=== PATIENT | female | born 1980 | race Caucasian/White ===

== ENCOUNTER → 2016-09-27 | Outpatient (CLI) | payer OTHER, MEDICAID ==
[~2016-09-27] MED LIST: ACET50TA PO; PRENATAL VITAMIN PO
[2016-09-27 18:45] LABS: BASO % 0.3 % (0.0-1.0); EOS # 0.2 K/mm3 (0.0-0.50); EOS % 1.8 % (0.0-3.0); LARGE UNSTAINED CELL # 0.2 K/mm3 (0.0-0.4); LYMPH # 2.4 K/mm3 (1.5-4.5); LYMPH % 26.9 % (24.0-44.0); MEAN CORPUSCULAR HEMOGLOBIN 30.7 pg (27.0-33.0); MEAN CORPUSCULAR HGB CONC 33.6 g/dl (32.0-36.5); MEAN CORPUSCULAR VOLUME 91.3 fl (80.0-96.0); MONO # 0.6 K/mm3 (0.0-0.8); MONO % 7.1 % (0.0-5.0); NEUTROPHILS # 5.5 K/mm3 (1.8-7.7); PLATELET COUNT, AUTOMATED 290 k/mm3 (150-450); RED CELL DISTRIBUTION WIDTH 12.3 % (11.5-14.5); WHITE BLOOD COUNT 8.9 K/mm3 (4.0-10.0)
[2016-09-30 10:26] LABS: HBsAg Prenatal NEGATIVE (NEGATIVE)
[2016-09-30 14:26] LABS: CONTROL LINE INT CTR LINE PRESENT; HIV SCRN NEGATIVE (NEGATIVE); HIV SCRN1 NEGATIVE (NEGATIVE)
== END ==
LOC: M SMT 10:57
PROVIDERS: ATTEND Advanced Practice Midwife
DX: Z34.81 Encounter for supervision of other normal pregnancy, first trimester (principal)

== ENCOUNTER 2016-10-24 09:36 | Emergency (ER) | payer OTHER, MEDICAID ==
[~2016-10-24] VITALS: Ht 167.6 cm; Wt 91.6 kg
[2016-10-24] MEDS ORDERED: METOCLOPRAMIDE INJ 10MG/2ML VIAL (J2765) As Ordered ONE (10:52)
[2016-10-24 12:22] VITALS: BP 147/57
[2016-10-24 14:02] LABS: ALT/SGPT 44 U/L (12-78); ANION GAP 9 MEQ/L (8-16); AST/SGOT 24 U/L (15-37); BLOOD UREA NITROGEN 11 MG/DL (7-18); CALCIUM LEVEL 8.8 MG/DL (8.5-10.1); CARBON DIOXIDE LEVEL 23 MEQ/L (21-32); CHLORIDE LEVEL 107 MEQ/L (98-107); CREATININE FOR GFR 0.57 MG/DL (0.55-1.02); GLOMERULAR FILTRATION RATE > 60.0 (>60); GLUCOSE, FASTING 79 MG/DL (70-105); MEAN CORPUSCULAR HEMOGLOBIN 31.7 pg (27.0-33.0); MEAN CORPUSCULAR HGB CONC 35.3 g/dl (32.0-36.5); MEAN CORPUSCULAR VOLUME 89.8 fl (80.0-96.0); POTASSIUM SERUM 3.7 MEQ/L (3.5-5.1); RED CELL DISTRIBUTION WIDTH 12.5 % (11.5-14.5); SODIUM LEVEL 139 MEQ/L (136-145); WHITE BLOOD COUNT 17.7 K/mm3 (4.0-10.0)
[2016-10-24 14:03] LABS: ALBUMIN 3.7 GM/DL (3.2-5.2); ALBUMIN/GLOBULIN RATIO 1.03 (1.00-1.93); ALKALINE PHOSPHATASE 103 U/L (45-117); AMYLASE 41 U/L (25-115); BASO % 0.2 % (0.0-1.0); BILIRUBIN,TOTAL 0.4 MG/DL (0.2-1.0); EOS # 0.2 K/mm3 (0.0-0.50); EOS % 0.9 % (0.0-3.0); LARGE UNSTAINED CELL # 0.1 K/mm3 (0.0-0.4); LARGE UNSTAINED CELL % 0.7 % (0.0-4.0); LYMPH # 1.1 K/mm3 (1.5-4.5); MONO # 0.7 K/mm3 (0.0-0.8); NEUTROPHILS # 15.6 K/mm3 (1.8-7.7); NEUTROPHILS % 88.3 % (36.0-66.0); PLATELET COUNT, AUTOMATED 246 k/mm3 (150-450); TOTAL PROTEIN 7.3 GM/DL (6.4-8.2)
== END 2016-10-24 12:37 | disposition home or self-care (01) ==
LOC: M ED 11:51
DX: R11.2 Nausea with vomiting, unspecified (principal); Z88.8 Allergy status to other drugs, medicaments and biological substances
CPT/HCPCS: 36415; 80053; 81001; 82150; 83690; 85025; 87086; 99282; J2765

== ENCOUNTER → 2016-10-30 | Outpatient (CLI) | payer OTHER, MEDICAID | LOC: M WUC 17:09 | PROVIDERS: ATTEND Advanced Practice Midwife | DX: Z34.81 Encounter for supervision of other normal pregnancy, first trimester (principal) ==

== ENCOUNTER → 2016-11-12 | Outpatient (CLI) | payer OTHER, MEDICAID | LOC: M SMT 10:41 | PROVIDERS: ATTEND Advanced Practice Midwife | DX: O09.521 Supervision of elderly multigravida, first trimester (principal); Z3A.00 Weeks of gestation of pregnancy not specified; Z13.79 Encounter for other screening for genetic and chromosomal anomalies ==

== ENCOUNTER → 2016-12-17 | Outpatient (CLI) | payer OTHER, MEDICAID ==
--- NOTE | 2016-12-18 06:36 | REP ---
Clinical: Anatomical evaluation. Comparison: None . Findings: Examination demonstrates a single live intrauterine in cephalic presentation. motion is identified by technologist. Placenta is noted anterior and grade 0 measuring approximately 1.2 cm from the closed internal os. Amniotic fluid volume is normal. Cervix measures 4.2 cm in length and appears closed. No evidence for nuchal cord. Gestational age by current measurements 18 weeks 6 days with STEPHANIE 05/14/2017 . FHR equals 153 beats per minute. BPD 4.4 cm 19 weeks 3 days HC 16.2 cm 19 weeks 0 days AC 13.3 cm 18 weeks 5 days FL 2.9 cm 19 weeks 0 days HL 3.0 cm 19 weeks 5 days HC/AC ratio 1.22 Estimated weight 263 grams ( 47th percentile). Anatomical assessment demonstrates normal structures including cranium, choroid plexus, cavum, cerebellum/posterior fossa, nose/lips, lungs, diaphragm, stomach, cord insertion/three-vessel cord, kidneys/bladder, spine, and upper extremities. Limited evaluation of the facial profile, heart/ventricular outflow tracts, and lower extremities noted. Impression: 1. Single live intrauterine in cephalic presentation demonstrating appropriate interval growth. 2. Anatomical limitations as described above may warrant reevaluation and follow-up. No gross abnormalities are identified. 3. Anterior marginal placenta previa cannot be excluded. Signed by Brennan Hernandez MD 12/18/2016 06:28 A
== END ==
LOC: M SMT 12:56
PROVIDERS: ATTEND Advanced Practice Midwife
DX: Z36 Encounter for antenatal screening of mother (principal); Z3A.18 18 weeks gestation of pregnancy

== ENCOUNTER → 2017-01-21 | Outpatient (CLI) | payer OTHER, MEDICAID ==
--- NOTE | 2017-01-21 23:50 | REP ---
Clinical: Anatomical evaluation. Comparison: 12/17/2016 . Findings: Examination demonstrates a single live intrauterine in transverse (head to maternal right) presentation. motion is identified by technologist. Placenta is noted anteriorly and grade zero without evidence for placenta previa or abruption. Amniotic fluid volume is normal. Cervix measures 3.9 cm in length and appears closed. No evidence for nuchal cord. Gestational age by LMP 23 weeks 6 days with STEPHANIE 05/14/2017 . Gestational age by current measurements 23 weeks 6 days with STEPHANIE 05/14/2017 . FHR equals 136 beats per minute. Estimated weight 698 grams ( 62nd percentile). Anatomical assessment demonstrates normal structures including cranium, choroid plexus, cavum, facial features, lungs, four-chamber heart/ventricular outflow tracts, diaphragm, stomach, cord insertion/three-vessel cord, kidneys/bladder, spine, and extremities. Impression: Single live intrauterine in transverse lie demonstrating appropriate interval growth. In conjunction with prior examination anatomical assessment is complete and normal. No gross abnormalities are identified. Signed by Brennan Hernandez MD 01/21/2017 11:41 P
== END ==
LOC: M SMT 13:05
PROVIDERS: ATTEND Advanced Practice Midwife
DX: Z36 Encounter for antenatal screening of mother (principal); Z3A.23 23 weeks gestation of pregnancy; O09.522 Supervision of elderly multigravida, second trimester

== ENCOUNTER → 2017-02-03 | Outpatient (CLI) | payer OTHER, MEDICAID ==
[2017-02-03 14:34] LABS: BASO % 0.2 % (0.0-1.0); EOS # 0.2 K/mm3 (0.0-0.50); EOS % 1.2 % (0.0-3.0); LARGE UNSTAINED CELL # 0.1 K/mm3 (0.0-0.4); LARGE UNSTAINED CELL % 0.7 % (0.0-4.0); LYMPH # 1.8 K/mm3 (1.5-4.5); LYMPH % 13.2 % (24.0-44.0); MEAN CORPUSCULAR HEMOGLOBIN 31.7 pg (27.0-33.0); MEAN CORPUSCULAR HGB CONC 33.9 g/dl (32.0-36.5); MEAN CORPUSCULAR VOLUME 93.5 fl (80.0-96.0); MONO # 0.5 K/mm3 (0.0-0.8); MONO % 4.1 % (0.0-5.0); NEUTROPHILS # 10.4 K/mm3 (1.8-7.7); NEUTROPHILS % 80.5 % (36.0-66.0); PLATELET COUNT, AUTOMATED 263 k/mm3 (150-450); RED CELL DISTRIBUTION WIDTH 13.1 % (11.5-14.5)
== END ==
LOC: M SMT 08:53
PROVIDERS: ATTEND Advanced Practice Midwife
DX: O09.523 Supervision of elderly multigravida, third trimester (principal); Z3A.00 Weeks of gestation of pregnancy not specified
CPT/HCPCS: 36415; 82950; 85025; 86850; 86900; 86901; J2790

== ENCOUNTER → 2017-03-27 | Outpatient (REF) | payer OTHER, MEDICAID | LOC: M LAB REF 17:25 | PROVIDERS: ATTEND Advanced Practice Midwife | DX: O09.523 Supervision of elderly multigravida, third trimester (principal); Z3A.31 31 weeks gestation of pregnancy ==

== ENCOUNTER → 2017-04-15 | Outpatient (REF) | payer OTHER, MEDICAID | LOC: M LAB REF 17:03 | PROVIDERS: ATTEND Specialist | DX: Z34.83 Encounter for supervision of other normal pregnancy, third trimester (principal) ==

== ENCOUNTER 2017-10-24 08:24 | Day surgery (SDC) | payer OTHER ==
[2017-10-24 08:55] LABS: HEMATOCRIT 41.9 % (36.0-47.0); HEMOGLOBIN 14.3 g/dl (12.0-15.5); MEAN CORPUSCULAR HEMOGLOBIN 30.6 pg (27.0-33.0); MEAN CORPUSCULAR HGB CONC 34.1 g/dl (32.0-36.5); MEAN CORPUSCULAR VOLUME 89.5 fl (80.0-96.0); PLATELET COUNT, AUTOMATED 273 10^3/uL (150-450); RED BLOOD COUNT 4.68 10^6/uL (4.00-5.40); RED CELL DISTRIBUTION WIDTH 13.4 % (11.5-14.5); WHITE BLOOD COUNT 11.5 10^3/uL (4.0-10.0)
[2017-10-24 09:07] LABS: CONTROL LINE HCG INT CTR LINE PRESENT; HCG, SERUM QUALITATIVE NEGATIVE (NEGATIVE)
[2017-10-24] MEDS: LR 1,000 ML IV (09:07)
[2017-10-24] MEDS ORDERED: ONDANSETRON 4MG/2ML VIAL (J2405) As Ordered (10:12)
[2017-10-24] MEDS ORDERED: dexameTHASONE 4 MG/ML 1ML VIAL (J1100) As Ordered (10:12)
[2017-10-24] MEDS ORDERED: ROCURONIUM BROMIDE 50 MG/5 ML VIAL As Ordered (10:12)
[2017-10-24] MEDS ORDERED: fentaNYL 100 MCG/2 ML INJECTION (J3010) As Ordered ×2 (10:12→10:56)
[2017-10-24] MEDS ORDERED: MIDAZOLAM INJ 2 MG/2 ML VIAL (J2250) As Ordered (10:12)
[2017-10-24] MEDS ORDERED: HYDROmorphone HCL 2 MG/ML 1ML VIAL (J1170) As Ordered (10:12)
[2017-10-24] MEDS ORDERED: LIDOCAINE 2% INJ 100 MG/5 ML SDV (FOR ANES.) As Ordered (10:12)
[2017-10-24] MEDS ORDERED: PROPOFOL 200 MG/20 ML VIAL As Ordered ×2 (10:12)
[2017-10-24] MEDS ORDERED: ePHEDrine SULFATE 25 MG/5 ML(5MG/ML) SYRINGE As Ordered (10:15)
[2017-10-24] MEDS ORDERED: GLYCOPYRROLATE INJ 0.2 MG/ML 2 ML VIAL As Ordered ×2 (10:18)
[2017-10-24] MEDS ORDERED: NEOSTIGMINE 10 MG/10 ML VIAL (J2710) As Ordered (10:18)
[2017-10-24] MEDS: BUPIVACAINE HCL 0.25% 30 ML VIAL As Ordered (10:30)
[2017-10-24] MEDS ORDERED: METOCLOPRAMIDE INJ 10MG/2ML VIAL (J2765) As Ordered (10:52)
[2017-10-24] MEDS: PERCOCET 5MG/325MG TAB PO (10:55)
[2017-10-24] MEDS: fentaNYL 100 MCG/2 ML INJECTION (J3010) IV ×4 (10:55→11:10)
[2017-10-24] MEDS ORDERED: PERCOCET 5MG/325MG TAB As Ordered (10:56)
[2017-10-24] MEDS ORDERED: ONDANSETRON 4MG/2ML VIAL (J2405) IV (11:15)
[2017-10-24] MEDS ORDERED: METOCLOPRAMIDE INJ 10MG/2ML VIAL (J2765) IV (11:15)
[2017-10-24] MEDS ORDERED: PERCOCET 5MG/325MG TAB PO (11:15)
[2017-10-24] MEDS ORDERED: LR 1,000 ML IV (11:15)
[2017-10-24] MEDS: IBUPROFEN 800 MG TAB PO (11:30)
== END 2017-10-24 13:10 | disposition home or self-care (01) ==
LOC: M SDC 08:24
DX: Z30.2 Encounter for sterilization (principal); M17.0 Bilateral primary osteoarthritis of knee; M16.0 Bilateral primary osteoarthritis of hip; Z88.5 Allergy status to narcotic agent; F17.210 Nicotine dependence, cigarettes, uncomplicated
CPT/HCPCS: 58671

== ENCOUNTER → 2018-01-04 | Outpatient (CLI) | payer OTHER | LOC: M WUC 11:01 | DX: M25.562 Pain in left knee (principal) | CPT/HCPCS: 73560 ==

== ENCOUNTER → 2019-12-16 | Outpatient (REF) | payer OTHER ==
[~2019-12-16] MED LIST changes: -ACET50TA PO; +MAPA500T2 PO; +SEASTAB PO
== END ==
LOC: M SFHCWAGY 16:38
PROVIDERS: ATTEND Nurse Practitioner Women's Health
DX: N76.0 Acute vaginitis (principal)

== ENCOUNTER → 2021-02-14 | Outpatient (CLI) | payer OTHER ==
--- NOTE | 2021-02-14 14:24 | REP ---
INDICATION: PAIN. COMPARISON: 07/31/2017 TECHNIQUE: AP and frog-lateral views FINDINGS: The hip joint space is again seen to be symmetric and well maintained. There is no acute fracture, dislocation, or subluxation. There is no change in appearance of the femoral head. There is a tiny marginal osteophyte arising from the inferior femoral head status quo IMPRESSION: Stable left hip findings <Electronically signed by Jovi Chapman > 02/14/21 [id number]
--- NOTE | 2021-02-14 14:45 | REP ---
INDICATION: PAIN. COMPARISON: None. TECHNIQUE: There are three views. FINDINGS: Mineralization is normal. The sacroiliac articulations are unremarkable. The sacral a ala and foramen are unremarkable. There is no fracture or dislocation. There are no calcifications. There are bilateral tubal ligation clips. IMPRESSION: Negative plain film study of the sacrum and coccyx. If symptoms worsen or persist consider follow-up MRI. <Electronically signed by Catalino Patel > 02/14/21 0110
== END ==
LOC: M WUC 12:42
PROVIDERS: ATTEND Nurse Practitioner Adult Health
DX: M53.3 Sacrococcygeal disorders, not elsewhere classified (principal)

== ENCOUNTER → 2023-12-09 | Outpatient (REF) | payer OTHER | LOC: M LAB REF 15:51 | PROVIDERS: ATTEND Surgery | DX: L72.0 Epidermal cyst (principal) ==

== ENCOUNTER 2024-07-04 02:15 | Emergency (ER) | payer OTHER ==
[~2024-07-04] VITALS: Ht 167.6 cm; Wt 89.1 kg
[2024-07-04 02:19] VITALS: BP 135/77; TEMP 96.9; O2SAT 99
== END 2024-07-04 05:02 | disposition left against medical advice (07) ==
LOC: M ED 02:15
DX: Z53.21 Procedure and treatment not carried out due to patient leaving prior to being seen by health care provider (principal)

== ENCOUNTER → 2024-08-10 | Outpatient (REF) | payer OTHER | LOC: M LAB REF 11:59 | PROVIDERS: ATTEND Physician Assistant | DX: B34.9 Viral infection, unspecified (principal) ==

== ENCOUNTER → 2025-05-30 | Outpatient (CLI) | payer OTHER ==
[2025-06-01 23:01] LABS: BORRELIA SPECIES DNA NOT DETECTED (NOT DETECT)
== END ==
LOC: M WUC 09:23
PROVIDERS: ATTEND Nurse Practitioner Adult Health
DX: M79.642 Pain in left hand (principal); M25.541 Pain in joints of right hand; R60.0 Localized edema; M25.531 Pain in right wrist; M25.532 Pain in left wrist; M25.542 Pain in joints of left hand